=== PATIENT | male | born 2000 ===

== ENCOUNTER 2025-03-04 14:31 | Emergency (ER) | payer OTHER, SELFPAY ==
[2025-03-04 14:38] VITALS: BP 134/77; PULSE 82; RESP 16; TEMP 36.5; O2SAT 99; BMI 26.6
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
[2025-03-04 15:28] VITALS: BP 134/77; PULSE 82; RESP 16; TEMP 36.5; O2SAT 99
== END 2025-03-04 15:28 | disposition home or self-care (01) ==
PROVIDERS: Emergency Provider Emergency Medicine
DX: M25.522 Pain in left elbow (principal)
CPT/HCPCS: 99282; 99283

== ENCOUNTER 2025-03-12 14:36 | Outpatient (AMB) | payer OTHER, SELFPAY ==
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
[2025-03-12 14:55] VITALS: BMI 26.6
== END 2025-03-12 15:18 | disposition home or self-care (01) ==
LOC: HO.HOS 14:37
PROVIDERS: Visit Provider Physician Assistant
DX: S52.122A Displaced fracture of head of left radius, initial encounter for closed fracture (principal)
CPT/HCPCS: 99203

== ENCOUNTER → 2025-03-12 14:38 | Outpatient (BNV) | payer OTHER, SELFPAY | PROVIDERS: Visit Provider Radiology Diagnostic Radiology | DX: S52.135A Nondisplaced fracture of neck of left radius, initial encounter for closed fracture (principal) | CPT/HCPCS: 73080 ==

== ENCOUNTER 2025-03-12 15:08 | Outpatient (REF) | payer OTHER, SELFPAY ==
--- NOTE | ~2025-03-12 | XR_ITS ---
EXAMINATION: XR ELBOW 3 VIEWS LEFT HISTORY: M25.529 - Pain in unspecified elbow COMPARISON: There are no prior studies available for comparison. FINDINGS: Four views of the left elbow are submitted. Osseous mineralization is normal. There is a nondisplaced fracture of the radial neck. No additional fracture is seen. There is no dislocation. The joint spaces are preserved. There is a small joint effusion. XR/XR elbow LT min 3V IMPRESSION: Nondisplaced fracture of the radial neck. Small joint effusion. Electronically signed by: Jere Darden MD 03/13/2025 07:40 AM EDT
== END 2025-03-12 15:09 | disposition home or self-care (01) ==
LOC: HO.HOSX 15:08
PROVIDERS: Visit Provider Physician Assistant
DX: S52.122A Displaced fracture of head of left radius, initial encounter for closed fracture (principal); M25.522 Pain in left elbow
CPT/HCPCS: 73080; 99202

== ENCOUNTER 2025-04-09 12:12 | Outpatient (REF) | payer OTHER, SELFPAY ==
--- NOTE | ~2025-04-09 | XR_ITS ---
EXAMINATION: XR ELBOW, LEFT CLINICAL INFORMATION: M25.529 - Pain in unspecified elbow COMPARISON: 03/12/2025. TECHNIQUE: AP, lateral, and oblique views of the left elbow. FINDINGS: Healing fracture of the radial neck. Fracture lines are indistinct. Stable alignment. Resolution of previously seen joint effusion. XR/XR elbow LT min 3V IMPRESSION: Healing fracture radial neck and stable alignment. Electronically signed by: Joshua Banks MD 04/09/2025 03:52 PM EDT
== END 2025-04-09 12:13 | disposition home or self-care (01) ==
LOC: HO.HOSX 12:12
PROVIDERS: Visit Provider Physician Assistant
DX: M25.522 Pain in left elbow (principal); S52.122A Displaced fracture of head of left radius, initial encounter for closed fracture
CPT/HCPCS: 73080; 99212

== ENCOUNTER 2025-04-09 14:11 | Outpatient (AMB) | payer OTHER, SELFPAY ==
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
== END 2025-04-09 14:50 | disposition home or self-care (01) ==
LOC: HO.HOS 14:12
PROVIDERS: Visit Provider Physician Assistant
DX: S52.122A Displaced fracture of head of left radius, initial encounter for closed fracture (principal)
CPT/HCPCS: 99213

== ENCOUNTER → 2025-04-09 14:16 | Outpatient (BNV) | payer OTHER, SELFPAY | PROVIDERS: Visit Provider Radiology Diagnostic Radiology | DX: M25.522 Pain in left elbow (principal) | CPT/HCPCS: 73080 ==